=== PATIENT | female | born 1960 | race Caucasian/White ===

== ENCOUNTER 2022-05-11 06:33 | Inpatient (IN) ==
[2022-05-11] MEDS ORDERED: ACETAMINOPHEN 500 MG TABLET PO STA (06:42)
[2022-05-11] MEDS ORDERED: SODIUM CHLORIDE 0.9% 1,000 ML IV STA ×2 (06:47→08:34)
[2022-05-11] MEDS ORDERED: DEXAMETHASONE 4 MG/1 ML VIAL IV STA (06:47)
[2022-05-11 07:17] LABS: Basophils % 0.1 % (0.0-0.8); Eosinophils % 0.1 % (0.00-10.9); Hematocrit 33.7 VOL% (35.7-47.0); Immature Granulocytes % 0.3 %; Immature Granulocytes Absolute 0.03 #; Lymphocytes # 1.1 10*3/uL (1.4-4.0); Lymphocytes % 12.3 % (21.3-54.2); Mean Corpuscular HGB Conc 32.6 GM/DL (32-36); Mean Corpuscular Volume 89.2 FL (87-102); Monocytes # 0.8 10*3/uL (0.11-0.8); Monocytes % 8.3 % (1.7-12.7); Neutrophils % 78.9 % (38.7-73.9); Platelet Count 185 T/CUMM (130-400); Red Blood Count 3.78 MC/CUMM (3.8-5.5); Red Cell Distribution Width 14.5 % (9.3-17.3)
[2022-05-11 07:39] LABS: Alanine Aminotransferase 27 U/L (13-56); Alkaline Phosphatase 117 U/L (45-117); Aspartate Amino Transferase 21 U/L (0-37); Bilirubin,Total < 0.39 MG/DL (0.20-1.00); Blood Urea Nitrogen 9 MG/DL (7-18); Carbon Dioxide 24 MMOL/L (21-32); Chloride 106 MMOL/L (98-107); Glucose 120 MG/DL (74-106); Osmolality,Calculated 272.8 MOS/KG (273-304); Potassium 3.7 MMOL/L (3.5-5.1); Sodium 137 MMOL/L (136-145); Total Protein 6.7 G/DL (6.4-8.2)
[2022-05-11 08:25] LABS: Protein,Urine Negative (Negative); RBC,Urine <1 /HPF (0-4); Squamous Epithelial Cell,Urine Occasional /HPF (0-10); Urine Appearance Clear (Clear); Urine Color Yellow (Yellow)
[2022-05-11 08:26] LABS: Bilirubin,Urine Negative (Negative); Blood, Urine Negative (Negative); Glucose,Urine (UA) Negative (Negative); Ketones,Urine Negative (Negative); Nitrite,Urine Negative (Negative); Urine Urobilinogen 0.2 eU/dL (<2.0)
[2022-05-11] MEDS ORDERED: cefTRIAXone 1,000 MG in SODIUM CHLORIDE 0.9% 100 ML IV STA (08:34)
[2022-05-11] MEDS ORDERED: AZITHROMYCIN INJ 500 MG in SODIUM CHLORIDE 0.9% 250 ML IV STA (08:34)
[2022-05-11] MEDS ORDERED: SODIUM CHLORIDE 0.9% 1,000 ML IV ONE (10:10)
[2022-05-11] MEDS ORDERED: GLUCAGON 1 MG VIAL IM PRN (10:10)
[2022-05-11] MEDS ORDERED: DEXTROSE 10% 250 ML BAG IV PRN (10:46)
[2022-05-11] MEDS ORDERED: ALBUTEROL INHALER 18 GM INH PRN (11:17)
[2022-05-11] MEDS: ENOXAPARIN 40 MG/0.4 ML SYRINGE SUBCUT SCH (11:52)
[2022-05-11] MEDS ORDERED: REMDESIVIR 200 MG in SODIUM CHLORIDE 0.9% 210 ML IV ONE (14:00)
[2022-05-11] MEDS: ALBUTEROL INHALER 18 GM INH SCH (17:25)
[2022-05-11] MEDS: ASCORBIC ACID 500 MG TABLET PO SCH (21:32)
[2022-05-11] MEDS: MELATONIN 3 MG TABLET PO PRN (21:32)
[2022-05-11] MEDS ORDERED: INSULIN REGULAR 100 UNIT/ML SUBCUT ONE (22:33)
[2022-05-11] MEDS: QUEtiapine 25 MG TABLET PO SCH (23:11)
[2022-05-12 06:29] LABS: Basophils % 0.1 % (0.0-0.8); Hematocrit 33.6 VOL% (35.7-47.0); Hemoglobin 11.2 GM/DL (12.0-16.0); Immature Granulocytes % 0.6 %; Immature Granulocytes Absolute 0.08 #; Lymphocytes % 7.9 % (21.3-54.2); Mean Corpuscular HGB Conc 33.3 GM/DL (32-36); Mean Corpuscular Volume 89.4 FL (87-102); Mean Platelet Volume 11.2 FL (9.6-12.0); Monocytes # 0.4 10*3/uL (0.11-0.8); Monocytes % 3.3 % (1.7-12.7); Neutrophils % 88.1 % (38.7-73.9); Platelet Count 201 T/CUMM (130-400); Red Blood Count 3.76 MC/CUMM (3.8-5.5); Red Cell Distribution Width 14.7 % (9.3-17.3); White Blood Count 12.7 T/CUMM (4-12)
[2022-05-12 06:53] LABS: Alanine Aminotransferase 21 U/L (13-56); Albumin 2.8 G/DL (3.4-5.0); Alkaline Phosphatase 105 U/L (45-117); Aspartate Amino Transferase 12 U/L (0-37); Bilirubin,Total < 0.39 MG/DL (0.20-1.00); Blood Urea Nitrogen 11 MG/DL (7-18); Calcium 8.8 MG/DL (8.5-10.1); Carbon Dioxide 23 MMOL/L (21-32); Chloride 114 MMOL/L (98-107); Ferritin 31.3 ng/mL (8-252); Glucose 159 MG/DL (74-106); Osmolality,Calculated 282.3 MOS/KG (273-304); Potassium 3.8 MMOL/L (3.5-5.1); Sodium 141 MMOL/L (136-145); Total Protein 6.8 G/DL (6.4-8.2)
[2022-05-12] MEDS: ALBUTEROL INHALER 18 GM INH SCH ×6 (07:40→18:43)
[2022-05-12] MEDS: ENOXAPARIN 40 MG/0.4 ML SYRINGE SUBCUT SCH (10:04)
[2022-05-12] MEDS: CHOLECALCIFEROL 1,000 UNIT TABLET PO SCH (10:18)
[2022-05-12] MEDS: ASCORBIC ACID 500 MG TABLET PO SCH ×2 (10:18→21:16)
[2022-05-12] MEDS: ZINC GLUCONATE 50 MG TABLET PO SCH (10:18)
[2022-05-12] MEDS: cefTRIAXone 1,000 MG in SODIUM CHLORIDE 0.9% 100 ML IV SCH (10:19)
[2022-05-12] MEDS: DEXAMETHASONE 4 MG/1 ML VIAL IV SCH (10:20)
[2022-05-12] MEDS ORDERED: AZITHROMYCIN INJ 500 MG in SODIUM CHLORIDE 0.9% 250 ML IV SCH (10:30)
[2022-05-12] MEDS ORDERED: ERGOCALCIFEROL 50,000 UNIT CAPSULE PO SCH (11:00)
[2022-05-12] MEDS: ARIPiprazole 5 MG TABLET PO SCH (11:58)
[2022-05-12] MEDS: REMDESIVIR 100 MG in SODIUM CHLORIDE 0.9% 100 ML IV SCH (11:58)
[2022-05-12] MEDS: DULoxetine 30 MG CAPSULE PO SCH ×2 (11:58→21:16)
[2022-05-12] MEDS: LINACLOTIDE 145 MCG CAPSULE PO SCH (11:59)
[2022-05-12] MEDS: ONDANSETRON 4 MG/2 ML VIAL IV PRN ×3 (13:38→22:55)
[2022-05-12] MEDS ORDERED: ALPRAZolam 0.5 MG TABLET PO SCH (14:54)
[2022-05-12] MEDS: ALPRAZolam 0.5 MG TABLET PO PRN ×2 (15:30→22:55)
[2022-05-12] MEDS ORDERED: ZONISAMIDE 100 MG CAPSULE PO SCH (21:00)
[2022-05-12] MEDS: QUEtiapine 25 MG TABLET PO SCH (21:16)
[2022-05-12] MEDS: PANTOPRAZOLE 40 MG TABLET PO SCH (21:16)
[2022-05-12] MEDS: MELATONIN 3 MG TABLET PO PRN (21:17)
[2022-05-13 06:08] LABS: Basophils % 0.1 % (0.0-0.8); Hematocrit 32.7 VOL% (35.7-47.0); Hemoglobin 10.4 GM/DL (12.0-16.0); Immature Granulocytes % 0.9 %; Immature Granulocytes Absolute 0.12 #; Lymphocytes # 0.8 10*3/uL (1.4-4.0); Lymphocytes % 6.1 % (21.3-54.2); Mean Corpuscular HGB Conc 31.8 GM/DL (32-36); Mean Corpuscular Volume 90.1 FL (87-102); Mean Platelet Volume 10.8 FL (9.6-12.0); Monocytes # 0.6 10*3/uL (0.11-0.8); Monocytes % 4.2 % (1.7-12.7); Neutrophils % 88.7 % (38.7-73.9); Platelet Count 185 T/CUMM (130-400); Red Blood Count 3.63 MC/CUMM (3.8-5.5); Red Cell Distribution Width 14.7 % (9.3-17.3); White Blood Count 13.7 T/CUMM (4-12)
[2022-05-13] MEDS ORDERED: LEVOTHYROXINE 88 MCG TABLET PO SCH (06:30)
[2022-05-13 06:31] LABS: Alanine Aminotransferase 19 U/L (13-56); Albumin 2.9 G/DL (3.4-5.0); Alkaline Phosphatase 92 U/L (45-117); Aspartate Amino Transferase 9 U/L (0-37); Bilirubin,Total < 0.39 MG/DL (0.20-1.00); Blood Urea Nitrogen 14 MG/DL (7-18); Calcium 8.3 MG/DL (8.5-10.1); Carbon Dioxide 24 MMOL/L (21-32); Chloride 115 MMOL/L (98-107); Glucose 156 MG/DL (74-106); Osmolality,Calculated 289.8 MOS/KG (273-304); Potassium 3.6 MMOL/L (3.5-5.1); Sodium 144 MMOL/L (136-145); Total Protein 6.4 G/DL (6.4-8.2)
[2022-05-13 06:40] LABS: Ferritin 34.9 ng/mL (8-252)
[2022-05-13] MEDS: ASCORBIC ACID 500 MG TABLET PO SCH ×2 (07:56→10:43)
[2022-05-13] MEDS: ARIPiprazole 5 MG TABLET PO SCH ×2 (07:56→10:41)
[2022-05-13] MEDS: DULoxetine 30 MG CAPSULE PO SCH ×2 (07:57→10:42)
[2022-05-13] MEDS: CHOLECALCIFEROL 1,000 UNIT TABLET PO SCH ×2 (07:57→10:43)
[2022-05-13] MEDS: LINACLOTIDE 145 MCG CAPSULE PO SCH ×2 (07:57→10:42)
[2022-05-13] MEDS: ZINC GLUCONATE 50 MG TABLET PO SCH ×2 (07:57→10:43)
[2022-05-13] MEDS: cefTRIAXone 1,000 MG in SODIUM CHLORIDE 0.9% 100 ML IV SCH ×2 (07:58→10:42)
[2022-05-13] MEDS: DEXAMETHASONE 4 MG/1 ML VIAL IV SCH ×2 (07:58→10:42)
[2022-05-13] MEDS: ENOXAPARIN 40 MG/0.4 ML SYRINGE SUBCUT SCH ×2 (07:59→10:42)
[2022-05-13] MEDS: ALBUTEROL INHALER 18 GM INH SCH ×4 (07:59→12:32)
[2022-05-13] MEDS: PANTOPRAZOLE 40 MG TABLET PO SCH (08:17)
[2022-05-13] MEDS ORDERED: AZITHROMYCIN 250 MG TABLET PO SCH (09:00)
[2022-05-13] MEDS: REMDESIVIR 100 MG in SODIUM CHLORIDE 0.9% 100 ML IV SCH (11:04)
[2022-05-13 13:02] VITALS: BP 110/54
== END 2022-05-13 14:02 | disposition home or self-care (01) | DRG 193 ==
LOC: EDUNIT# → EDBD → N.ED 06:33 → SUATTDRO 10:10 → N.5E 11:14
PROVIDERS: ADMIT Internal Medicine; ATTEND Internal Medicine